=== PATIENT | male | born 1955 | race Two or more races ===

== ENCOUNTER 2016-05-30 14:58 | Inpatient (IN) | payer OTHER ==
[2016-05-30 18:08] VITALS: BMI 30.4
--- NOTE | 2016-05-30 19:49 | HP ---
COWS - Scale Resting Pulse: 0= [place] 80 or Below Sweatin= Chills/Flushing Restless Observation: 1= Difficult to Sit Still Pupil Size: 1= Pupils >than Normal Bone or Joint Aches: 2= Severe Diffuse Aches Runny Nose/ Eye Tearin= Runny Nose/Eyes GI Upset > 30mins: 1= Stomach Cramp Tremor Observation: 2= Slight Tremor Visible Yawning Observation: 0= None Anxiety or Irritability: 2=Irritable/Anxious Goose Flesh Skin: 3=Piloerection COWS Score: 15 Admission ROS S - [facility] Chief Complaint: WITHDRAWAL SX Allergies/Adverse Reactions: Allergies Allergy/AdvReac Type Severity Reaction Status Date / Time No Known Allergies Allergy Verified 05/30/16 18:25 History of Present Illness: 61 YEARS OLD MALE WITH LONG HISTORY OF OPIATE NICOTINE DEPENDENT, DENIES MEDICAL ISSUE HAS ANXIETY IS ADMITTED TO DETOX Exam Limitations: No Limitations - Ebola screening Have you traveled outside of the country in the last 21 days: No Have you had contact with anyone from an Ebola affected area: No Have you been sick,other than usual withdrawal symptoms: No Do you have a fever: No - Review of Systems Constitutional: Chills, Changes in sleep, Weight Stable EENT: reports: Other (NEED EYE GLASSES) Respiratory: reports: No Symptoms reported Cardiac: reports: No Symptoms Reported GI: reports: Poor Fluid Intake, Abdominal cramping : reports: No Symptoms Reported Musculoskeletal: reports: Back Pain, Joint Pain, Muscle Pain, Muscle Weakness ( RIGHT KNEE), Neck Pain Integumentary: reports: Change in Color (IV OPIATE INNER ELBOWS) Neuro: reports: Tremors Endocrine: reports: No Symptoms Reported Hematology: reports: No Symptoms Reported Psychiatric: reports: Judgement Intact, Anxious Other Systems: Reviewed and Negative Patient History - Patient Medical History Hx Anemia: No Hx Asthma: Yes Hx Chronic Obstructive Pulmonary Disease (COPD): Yes Hx Cancer: No Hx Cardiac Disorders: No Hx Congestive Heart Failure: No Hx Hypertension: No Hx Hypercholesterolemia: No Hx Pacemaker: No HX Cerebrovascular Accident: No Hx Seizures: No Hx Diabetes: No Hx Gastrointestinal Disorders: No Hx Liver Disease: No Hx Genitourinary Disorders: No Hx Sexually Transmitted Disorders: No Hx Renal Disease (ESRD): No Hx Thyroid Disease: No Hx Human Immunodeficiency Virus (HIV): Yes (diagnosed 1984) Hx Hepatitis C: Yes Hx Depression: Yes Hx Suicide Attempt: No (denies) Hx Bipolar Disorder: No Hx Schizophrenia: No - Patient Surgical History Past Surgical History: Yes Hx Neurologic Surgery: No Hx Cataract Extraction: No Hx Cardiac Surgery: No Hx Lung Surgery: No Hx Breast Surgery: No Hx Breast Biopsy: No Hx Abdominal Surgery: No Hx Appendectomy: No Hx Cholecystectomy: No Hx Genitourinary Surgery: No Hx Orthopedic Surgery: Yes (orthscopic sx 2 months ago 2015) Anesthesia Reaction: No - PPD History Previous Implant?: Yes Documented Results: Positive w/o proof Implanted On Prior R Admission?: No Results: 04/2015 PPD to be Administered?: No - Smoking Cessation Smoking history: Current every day smoker Have you smoked in the past 12 months: Yes Aproximately how many cigarettes per day: 4 Cigars Per Day: 0 Hx Chewing Tobacco Use: No Initiated information on smoking cessation: Yes 'Breaking Loose' booklet given: 05/30/16 - Substance & Tx. History Hx Alcohol Use: No Hx Substance Use: Yes Substance Use Type: Cocaine, Heroin, Opiates Hx Substance Use Treatment: Yes - Substances Abused Heroin Route: Injection Frequency: Daily Amount used: 20 BAGS Age of first use: 19 Date of Last Use: 05/30/16 Family Disease History - Family Disease History Family Disease History: Diabetes: Mother (), [place]: Mother, Other: Father ( ), Mother, Brother (), Sister (HIV ), Daughter ( ) Admission Physical Exam BHS - Vital Signs Vital Signs: Vital Signs - 24 hr 05/30/16 18:02 Temperature 97.1 F L Pulse Rate 90 Respiratory 20 Rate Blood Pressure 132/88 - Physical General Appearance: Yes: Appropriately Dressed, Mild Distress, Tremorous, Irritable, Sweating, Anxious HEENTM: Yes: Hearing grossly Normal, Normal ENT Inspection, Normocephalic, Normal Voice Respiratory: Yes: Chest Non-Tender, No Respiratory Distress, No Accessory Muscle Use, Wheezing, Expiration, Hyperresonant, Inspiration Neck: Yes: Supple, Trachea in good position Breast: Yes: Breasts Symetrical Cardiology: Yes: Regular Rhythm, Regular Rate, S1, S2 Abdominal: Yes: Non Tender, Soft Genitourinary: Yes: Within Normal Limits Back: Yes: Normal Inspection Musculoskeletal: Yes: Gait Steady (CANE), Back pain, Muscle Pain (RIGHT KNEE), Muscle weakness (RIGHT KNEE) Extremities: Yes: Normal Range of Motion, Non-Tender, Tremors Neurological: Yes: Fully Oriented, Alert, Normal Response, Depressed Affect Integumentary: Yes: Warm Lymphatic: Yes: Within Normal Limits - Diagnostic (1) Nicotine dependence Current Visit: Yes Status: Acute Qualifiers: Nicotine product type: cigarettes Substance use status: in withdrawal Qualified Code(s): F17.213 - Nicotine dependence, cigarettes, with withdrawal (2) Opioid dependence with withdrawal Current Visit: Yes Status: Acute (3) COPD with asthma Current Visit: Yes Status: Acute (4) HIV disease Current Visit: Yes Status: Chronic Comment: NO MEDICATIONS WITH PATIENT LAST DOSE 11/2016 (5) Hepatitis C antibody test positive Current Visit: Yes Status: Acute (6) BPH (benign prostatic hyperplasia) Current Visit: Yes Status: Acute Qualifiers: Prostatic enlargement morphology: non-nodular Lower urinary tract symptom presence: symptoms absent Qualified Code(s): N40.0 - Benign prostatic hyperplasia without lower urinary tract symptoms (7) Positive PPD, treated Current Visit: Yes Status: Resolved (8) Anxiety Current Visit: Yes Status: Suspected (9) History of hypertension Current Visit: Yes Status: Resolved Cleared for Admission [facility] - Detox or Rehab [facility] Level of Care: Medically Managed Detox Regimen/Protocol: Methadone S Breath Alcohol Content Breath Alcohol Content: 0 Urine Drug Screen - Results Drug Screen Negative: No Urine Drug Screen Results: TAYLOR-Cocaine, OPI-Opiates, MTD-Methadone, OXY- Oxycodone
[2016-05-30] MEDS ORDERED: LOPERAMIDE HCL 2 MG CAPSULE PO PRN (20:03)
[2016-05-30] MEDS ORDERED: P-EPHED 60MG/TRIPROLIDI 2.5MG TABLET PO PRN (20:03)
[2016-05-30] MEDS ORDERED: MAG HYDROX/AL HYDROX/SIMETH 30 ML UNIT-DOSE CUP PO PRN (20:03)
[2016-05-30] MEDS ORDERED: MAGNESIUM HYDROX 2400MG/30ML ORAL SUSPENSION 30 ML CUP PO PRN (20:03)
[2016-05-30] MEDS ORDERED: METHADONE HCL 10 MG TABLET (FOR DETOX USE ONLY) PO ONE ×2 (20:03→23:00)
[2016-05-30] MEDS ORDERED: guaiFENesin/D-METHORPHAN HB 10 ML UNIT-DOSE CUPS PO PRN (20:03)
[2016-05-30] MEDS ORDERED: MAGNESIUM CITRATE 300 ML BOTTLE PO PRN (20:03)
[2016-05-30] MEDS ORDERED: NICOTINE POLACRILEX 2 MG GUM BC PRN (20:03)
[2016-05-30] MEDS ORDERED: MENTHOL/PHENOL 1 EACH UD MM PRN (20:03)
[2016-05-30] MEDS ORDERED: ALBUTEROL SO4 2.5/IPRATROPIUM 0.5 INH SOL 3 ML VIAL.NEB. NEB PRN (20:05)
[2016-05-30] MEDS ORDERED: ALBUTEROL SO4 6.7 GM HFA INHALER IH PRN (20:05)
[2016-05-30] MEDS: diazePAM 5 MG TABLET PO PRN (22:10)
[2016-05-30] MEDS: THIAMINE HCL 100 MG TABLET (FP) PO SCH (22:11)
[2016-05-30] MEDS: diphenhydrAMINE HCL 50 MG CAPSULE PO PRN (22:12)
[2016-05-30] MEDS: NAPROXEN 500 MG TABLET (FP) PO PRN (22:12)
[2016-05-30] MEDS: RANITIDINE HCL 150 MG TABLET (FP) PO SCH (22:12)
[2016-05-30] MEDS: BUDESONIDE/FORMETEROL FUMARATE 80/4.5 mcg INHALER IH SCH (22:14)
[2016-05-30 23:17] LABS: URINE APPEARANCE CLEAR; URINE BILIRUBIN NEGATIVE (NEGATIVE); URINE BLOOD NEGATIVE (NEGATIVE); URINE COLOR YELLOW; URINE GLUCOSE (UA) NEGATIVE (NEGATIVE); URINE KETONE NEGATIVE (NEGATIVE); URINE LEUK ESTERASE NEGATIVE (NEGATIVE); URINE NITRITE NEGATIVE (NEGATIVE); URINE PROTEIN NEGATIVE (NEGATIVE); URINE UROBILINOGEN NEGATIVE E.U./dl (0.2-1.0)
[2016-05-31] MEDS: diazePAM 5 MG TABLET PO PRN ×4 (01:10→22:11)
[2016-05-31] MEDS: NAPROXEN 500 MG TABLET (FP) PO PRN ×3 (06:11→22:10)
[2016-05-31] MEDS ORDERED: METHADONE HCL 10 MG TABLET (FOR DETOX USE ONLY) PO ONE (10:00)
[2016-05-31] MEDS: RANITIDINE HCL 150 MG TABLET (FP) PO SCH ×2 (10:12→22:11)
[2016-05-31] MEDS: TAMSULOSIN HCL 0.4 MG CAP.ER.24H (FP) PO SCH (10:12)
[2016-05-31] MEDS: ASPIRIN 81 MG CHEWABLE TABLETS PO SCH (10:12)
[2016-05-31] MEDS: PRENATAL VITAMINS W/ FOLIC ACID TABLET (FP) PO SCH (10:12)
[2016-05-31] MEDS: NICOTINE 14 MG/24 HOURS TOPICAL PATCH TD SCH (10:13)
[2016-05-31 10:15] LABS: MCH 29.8 pg (25.7-33.7); MEAN CELL VOLUME 93.1 fl (80-96); PLATELET COUNT 258 K/MM3 (134-434); RDW 18.1 % (11.9-15.9); WHITE BLOOD COUNT 7.7 K/mm3 (4.0-10.0)
[2016-05-31 10:32] LABS: ALBUMIN 3.7 g/dl (3.4-5.0); ALK PHOS 96 U/L (45-117); ANION GAP 7 (8-16); BILIRUBIN,TOTAL 0.2 mg/dL (0.2-1.0); CALCIUM 8.8 mg/dL (8.5-10.1); CO2 26 mmol/L (21-32); CREATININE 0.9 mg/dL (0.7-1.3); GLUCOSE,RANDOM 75 mg/dL (74-106); SGOT/AST 15 U/L (15-37); SGPT/ALT 21 U/L (12-78); TOT PROT 7.4 g/dl (6.4-8.2)
[2016-05-31] MEDS: METHYL SALICYLATE/MENTHOL OINT 30 GM TUBE TP SCH ×2 (10:36→22:10)
--- NOTE | 2016-05-31 11:06 | PN ---
S COWS - Scale Resting Pulse: 0= [place] 80 or Below Sweatin=Flushed/Facial Moisture Restless Observation: 1= Difficult to Sit Still Pupil Size: 1= Pupils >than Normal Bone or Joint Aches: 2= Severe Diffuse Aches Runny Nose/ Eye Tearin= Nasal Congestion GI Upset > 30mins: 1= Stomach Cramp Tremor Observation of Outstretched Hands: 1= Tremor [place], Not Seen Yawning Observation: 0= None Anxiety or Irritability: 2=Irritable/Anxious Goose Flesh Skin: 0=Smooth Skin COWS Score: 11 S Progress Note (SOAP) Subjective: interrupted sleep, sweats, shakes , rt leg sciatica, gas Objective: 05/31/16 11:04 Vital Signs Temperature 97.1 F L 05/31/16 06:41 Pulse Rate 65 05/31/16 06:41 Respiratory Rate 16 05/31/16 06:41 Blood Pressure 129/76 05/31/16 06:41 O2 Sat by Pulse Oximetry (%) Laboratory Tests 05/30/16 05/31/16 05/31/16 22:00 07:00 07:00 WBC 7.7 RBC 4.60 Hgb 13.7 Hct 42.8 MCV 93.1 MCHC 32.0 RDW 18.1 H D Plt Count 258 MPV 9.0 Sodium 140 Potassium 4.4 Chloride 107 Carbon Dioxide 26 Anion Gap 7 L BUN 22 H D Creatinine 0.9 Creat Clearance w eGFR > 60 Random Glucose 75 D Calcium 8.8 Total Bilirubin 0.2 D AST 15 ALT 21 D Alkaline Phosphatase 96 D Total Protein 7.4 Albumin 3.7 D Urine Color Yellow Urine Appearance Clear Urine pH 5.0 D Ur Specific [place] 1.017 Urine Protein Negative Urine Glucose (UA) Negative Urine Ketones Negative Urine Blood Negative Urine Nitrite Negative Urine Bilirubin Negative Urine Urobilinogen Negative Ur Leukocyte Esterase Negative pt aox3 in nad lying in bed Assessment: 05/31/16 11:06 withdrawal sx's rt sciatica constpation gas Plan: cont detox increase fluids flexeril prn simethecone qid ctroma naprosyn
[2016-05-31] MEDS ORDERED: SIMETHICONE 80 MG TAB.CHEW (FP) PO PRN (11:12)
[2016-05-31] MEDS: BUDESONIDE/FORMETEROL FUMARATE 80/4.5 mcg INHALER IH SCH ×2 (11:45→22:11)
[2016-05-31] MEDS: CYCLOBENZAPRINE HCL 10 MG TABLET (FP) PO SCH ×2 (14:08→22:10)
[2016-05-31] MEDS: ACETAMINOPHEN 325 MG TABLET (FP) PO PRN (14:08)
--- NOTE | 2016-05-31 16:55 | EKG ---
Test Reason : Blood Pressure : / mmHG Vent. Rate : 071 BPM Atrial Rate : 071 BPM P-R Int : 172 ms QRS Dur : 086 ms QT Int : 394 ms P-R-T Axes : 019 -41 030 degrees QTc Int : 428 ms NORMAL SINUS RHYTHM LEFT AXIS DEVIATION ABNORMAL ECG NO PREVIOUS ECGS AVAILABLE Confirmed by ANDREA VARGHESE MD ([id number]) on 05/31/2016 4:54:59 PM Referred By: Confirmed By:ANDREA VARGHESE MD
--- NOTE | 2016-05-31 17:02 | CONSULT ---
[facility] Psychiatric Consult - Data Date of interview: 05/31/16 Admission source: [facility] Identifying data: Another admission to [facility] for this 61 y/o male seeking detox treatment on for heroin and cocaine dependence.Patient is ,a father of fourteen (in this interview),domiciled, a retired [employer] (supposedly served in [place] from 1968 to 1972) and currently supported on his pension benefits. Substance Abuse History: - Smoking Cessation. Smoking history: Current every day smoker. Have you smoked in the past 12 months: Yes. Aproximately how many cigarettes per day: 4. Cigars Per Day: 0. Hx Chewing Tobacco Use: No. Initiated information on smoking cessation: Yes. 'Breaking Loose' booklet given : 05/30/16. - Substance & Tx. History. Hx Alcohol Use: No. Hx Substance Use: Yes. Substance Use Type: Cocaine, Heroin, Opiates. Hx Substance Use Treatment : Yes. - Substances Abused. Heroin. Route: Injection. Frequency: Daily. Amount used: 20 BAGS. Age of first use: 19. Date of Last Use: 05/30/16. Confirmed by the patient. Medical History: Bronchial asthma,pneumonias (PCP),diabetes mellitus,HIV infection since 1984 (on ART agents),GERD,hepatitis C and a history of orthoscopic surgery in the right knee (2016). Psychiatric History: Variable according to encounters.Patient is not a reliable historian (different historical versions to clinicians).Mr De Jesus reports a past admission to [place].Diagnosed with " Personality Disorder " and PTSD.Prescribed trazodone and ambien.However,the patient states that he has no [facility] care provider.No contact with psychiatrists.He reports that he was released from long term seven months ago after serving a 38 year sentence (?) for homicide.Patient denies history of suicide attempts. Physical/Sexual Abuse/Trauma History: Patient denies history of sexual abuse. Additional Comment: Urine Drug Screen Results: TAYLOR-Cocaine, OPI-Opiates, MTD- Methadone, OXY-Oxycodone.Noted. Mental Status Exam - Mental Status Exam Alert and Oriented to: Time, Place, Person Cognitive Function: Good Patient Appearance: Well Groomed (covered with tattoos) Mood: Hopeful, Euthymic Affect: Appropriate, Normal Range Patient Behavior: Fatigued, Appropriate, Cooperative Speech Pattern: Clear, Appropriate Voice Loudness: Normal Thought Process: Goal Oriented Thought Disorder: Not Present Hallucinations: Denies Suicidal Ideation: Denies Homicidal Ideation: Denies Insight/Judgement: Poor Sleep: Poorly, Difficulty falling asleep Appetite: Good Muscle strength/Tone: Normal Gait/Station: Normal Psychiatric Findings - Problem List ([place] 1, 2,3) (1) Opioid dependence with withdrawal Current Visit: Yes Status: Acute (2) Cocaine dependence Current Visit: Yes Status: Acute Qualifiers: Substance use status: uncomplicated Qualified Code(s): F14.20 - Cocaine dependence, uncomplicated (3) Nicotine dependence Current Visit: Yes Status: Acute Qualifiers: Nicotine product type: cigarettes Substance use status: in withdrawal Qualified Code(s): F17.213 - Nicotine dependence, cigarettes, with withdrawal (4) Drug-induced mood disorder Current Visit: No Status: Acute (5) BPH (benign prostatic hyperplasia) Current Visit: Yes Status: Chronic Qualifiers: Prostatic enlargement morphology: non-nodular Lower urinary tract symptom presence: symptoms absent Qualified Code(s): N40.0 - Benign prostatic hyperplasia without lower urinary tract symptoms (6) COPD with asthma Current Visit: Yes Status: Chronic (7) Hepatitis C antibody test positive Current Visit: Yes Status: Chronic (8) HIV disease Current Visit: Yes Status: Chronic Comment: NO MEDICATIONS WITH PATIENT LAST DOSE 11/2016 (9) History of hypertension Current Visit: Yes Status: Resolved (10) Diabetes Current Visit: Yes Status: Chronic Qualifiers: Diabetes mellitus type: type 2 Diabetes mellitus complication status: without complication Diabetes mellitus nursing home insulin use: without nursing home use Qualified Code(s): E11.9 - Type 2 diabetes mellitus without complications (11) GERD (gastroesophageal reflux disease) Current Visit: Yes Status: Chronic Qualifiers: Esophagitis presence: without esophagitis Qualified Code(s): K21.9 - Gastro-esophageal reflux disease without esophagitis (12) Insomnia Current Visit: Yes Status: Chronic - Initial Treatment Plan Initial Treatment Plan: Psychoeducation.Detoxication.Trazodone 100 mg po hs .Made aware of the risk of priapism and instructed to stop that drug/seek immediate attemntion fif painful/prolonged erection.Patient agrees with this careplan.Observation.
[2016-05-31] MEDS: traZODone HCL 100 MG TABLET (FP) PO SCH (22:10)
[2016-05-31] MEDS: THIAMINE HCL 100 MG TABLET (FP) PO SCH (22:11)
[2016-06-01] MEDS: diazePAM 5 MG TABLET PO PRN ×2 (06:04→22:59)
[2016-06-01] MEDS: CYCLOBENZAPRINE HCL 10 MG TABLET (FP) PO SCH ×3 (06:04→22:53)
--- NOTE | 2016-06-01 09:33 | PN ---
BHS COWS - Scale Resting Pulse: 0= [place] 80 or Below Sweatin=Flushed/Facial Moisture Restless Observation: 1= Difficult to Sit Still Pupil Size: 0= Normal to Room Light Bone or Joint Aches: 2= Severe Diffuse Aches Runny Nose/ Eye Tearin= Nasal Congestion GI Upset > 30mins: 0= None Tremor Observation of Outstretched Hands: 1= Tremor [place], Not Seen Yawning Observation: 2= >3x During Session Anxiety or Irritability: 1=Feels Anxious/Irritable Goose Flesh Skin: 0=Smooth Skin COWS Score: 10 BHS Progress Note (SOAP) Subjective: restless legs sweats sleepy/tired body aches interrupted sleep Objective: 06/01/16 09:25 Vital Signs Temperature 98.1 F 06/01/16 06:00 Pulse Rate 70 06/01/16 06:00 Respiratory Rate 18 06/01/16 06:00 Blood Pressure 100/59 06/01/16 06:00 O2 Sat by Pulse Oximetry (%) Laboratory Tests 05/30/16 05/31/16 05/31/16 22:00 07:00 07:00 WBC 7.7 RBC 4.60 Hgb 13.7 Hct 42.8 MCV 93.1 MCHC 32.0 RDW 18.1 H D Plt Count 258 MPV 9.0 Sodium 140 Potassium 4.4 Chloride 107 Carbon Dioxide 26 Anion Gap 7 L BUN 22 H D Creatinine 0.9 Creat Clearance w eGFR > 60 Random Glucose 75 D Calcium 8.8 Total Bilirubin 0.2 D AST 15 ALT 21 D Alkaline Phosphatase 96 D Total Protein 7.4 Albumin 3.7 D Urine Color Yellow Urine Appearance Clear Urine pH 5.0 D Ur Specific [place] 1.017 Urine Protein Negative Urine Glucose (UA) Negative Urine Ketones Negative Urine Blood Negative Urine Nitrite Negative Urine Bilirubin Negative Urine Urobilinogen Negative Ur Leukocyte Esterase Negative RPR Titer Hepatitis C Antibody 05/31/16 05/31/16 07:00 07:00 WBC RBC Hgb Hct MCV MCHC RDW Plt Count MPV Sodium Potassium Chloride Carbon Dioxide Anion Gap BUN Creatinine Creat Clearance w eGFR Random Glucose Calcium Total Bilirubin AST ALT Alkaline Phosphatase Total Protein Albumin Urine Color Urine Appearance Urine pH Ur Specific [place] Urine Protein Urine Glucose (UA) Urine Ketones Urine Blood Urine Nitrite Urine Bilirubin Urine Urobilinogen Ur Leukocyte Esterase RPR Titer Nonreactive Hepatitis C Antibody >11.0 H awake/alert lying in bed no acute distress Assessment: 06/01/16 09:26 withdrawal sx Plan: continue detox increase fluids stomach is feeling better
[2016-06-01] MEDS ORDERED: METHADONE HCL 5 MG TABLET (FOR DETOX USE ONLY) PO ONE (10:00)
[2016-06-01] MEDS: PRENATAL VITAMINS W/ FOLIC ACID TABLET (FP) PO SCH (10:55)
[2016-06-01] MEDS: BUDESONIDE/FORMETEROL FUMARATE 80/4.5 mcg INHALER IH SCH ×2 (10:55→22:54)
[2016-06-01] MEDS: RANITIDINE HCL 150 MG TABLET (FP) PO SCH ×2 (10:56→22:52)
[2016-06-01] MEDS: ASPIRIN 81 MG CHEWABLE TABLETS PO SCH (10:56)
[2016-06-01] MEDS: TAMSULOSIN HCL 0.4 MG CAP.ER.24H (FP) PO SCH (10:56)
[2016-06-01] MEDS: NAPROXEN 500 MG TABLET (FP) PO PRN ×2 (10:58→22:59)
[2016-06-01] MEDS: METHYL SALICYLATE/MENTHOL OINT 30 GM TUBE TP SCH ×2 (11:29→22:54)
[2016-06-01] MEDS: NICOTINE 14 MG/24 HOURS TOPICAL PATCH TD SCH (11:29)
[2016-06-01] MEDS: traZODone HCL 100 MG TABLET (FP) PO SCH (22:53)
[2016-06-01] MEDS: THIAMINE HCL 100 MG TABLET (FP) PO SCH (22:53)
[2016-06-02] MEDS: CYCLOBENZAPRINE HCL 10 MG TABLET (FP) PO SCH ×3 (06:13→22:08)
[2016-06-02] MEDS: NAPROXEN 500 MG TABLET (FP) PO PRN (06:16)
[2016-06-02] MEDS ORDERED: METHADONE HCL 5 MG TABLET (FOR DETOX USE ONLY) PO ONE (10:00)
[2016-06-02] MEDS: ASPIRIN 81 MG CHEWABLE TABLETS PO SCH (10:19)
[2016-06-02] MEDS: RANITIDINE HCL 150 MG TABLET (FP) PO SCH ×2 (10:19→22:08)
[2016-06-02] MEDS: TAMSULOSIN HCL 0.4 MG CAP.ER.24H (FP) PO SCH (10:19)
[2016-06-02] MEDS: METHYL SALICYLATE/MENTHOL OINT 30 GM TUBE TP SCH ×2 (10:20→22:08)
[2016-06-02] MEDS: BUDESONIDE/FORMETEROL FUMARATE 80/4.5 mcg INHALER IH SCH ×2 (10:20→22:08)
[2016-06-02] MEDS: NICOTINE 14 MG/24 HOURS TOPICAL PATCH TD SCH ×2 (10:20→15:07)
[2016-06-02] MEDS: PRENATAL VITAMINS W/ FOLIC ACID TABLET (FP) PO SCH (10:20)
--- NOTE | 2016-06-02 10:57 | PN ---
BHS Progress Note (SOAP) Subjective: interrupted sleep, sweats , shakes , sciatica pain wants to change to motrin Objective: 06/02/16 10:55 Vital Signs Temperature 96.8 F L 06/02/16 09:37 Pulse Rate 82 06/02/16 09:37 Respiratory Rate 20 06/02/16 09:37 Blood Pressure 109/69 06/02/16 09:37 O2 Sat by Pulse Oximetry (%) Laboratory Tests 05/30/16 05/31/16 05/31/16 22:00 07:00 07:00 WBC 7.7 RBC 4.60 Hgb 13.7 Hct 42.8 MCV 93.1 MCHC 32.0 RDW 18.1 H D Plt Count 258 MPV 9.0 Sodium 140 Potassium 4.4 Chloride 107 Carbon Dioxide 26 Anion Gap 7 L BUN 22 H D Creatinine 0.9 Creat Clearance w eGFR > 60 Random Glucose 75 D Calcium 8.8 Total Bilirubin 0.2 D AST 15 ALT 21 D Alkaline Phosphatase 96 D Total Protein 7.4 Albumin 3.7 D Urine Color Yellow Urine Appearance Clear Urine pH 5.0 D Ur Specific [place] 1.017 Urine Protein Negative Urine Glucose (UA) Negative Urine Ketones Negative Urine Blood Negative Urine Nitrite Negative Urine Bilirubin Negative Urine Urobilinogen Negative Ur Leukocyte Esterase Negative RPR Titer Hepatitis C Antibody 05/31/16 05/31/16 07:00 07:00 WBC RBC Hgb Hct MCV MCHC RDW Plt Count MPV Sodium Potassium Chloride Carbon Dioxide Anion Gap BUN Creatinine Creat Clearance w eGFR Random Glucose Calcium Total Bilirubin AST ALT Alkaline Phosphatase Total Protein Albumin Urine Color Urine Appearance Urine pH Ur Specific [place] Urine Protein Urine Glucose (UA) Urine Ketones Urine Blood Urine Nitrite Urine Bilirubin Urine Urobilinogen Ur Leukocyte Esterase RPR Titer Nonreactive Hepatitis C Antibody >11.0 H pt lying in bed aox 3 Assessment: 06/02/16 10:56 withdrawal sx's sciatica Plan: cont. detox increase fluids d/c maprosym motrin 800mg tid/prn
[2016-06-02] MEDS: IBUPROFEN 400 MG TABLET (FP) PO PRN (17:50)
[2016-06-02] MEDS: diazePAM 5 MG TABLET PO PRN (17:50)
[2016-06-02] MEDS: traZODone HCL 100 MG TABLET (FP) PO SCH (22:08)
[2016-06-02] MEDS: THIAMINE HCL 100 MG TABLET (FP) PO SCH (22:08)
[2016-06-02] MEDS: diphenhydrAMINE HCL 50 MG CAPSULE PO PRN (22:09)
[2016-06-03] MEDS: CYCLOBENZAPRINE HCL 10 MG TABLET (FP) PO SCH ×3 (05:52→22:39)
[2016-06-03] MEDS: TAMSULOSIN HCL 0.4 MG CAP.ER.24H (FP) PO SCH (07:32)
[2016-06-03] MEDS ORDERED: METHADONE HCL 10 MG TABLET (FOR DETOX USE ONLY) PO ONE (10:00)
[2016-06-03] MEDS: ASPIRIN 81 MG CHEWABLE TABLETS PO SCH (10:38)
[2016-06-03] MEDS: PRENATAL VITAMINS W/ FOLIC ACID TABLET (FP) PO SCH (10:38)
[2016-06-03] MEDS: RANITIDINE HCL 150 MG TABLET (FP) PO SCH ×2 (10:38→22:39)
[2016-06-03] MEDS: NICOTINE 14 MG/24 HOURS TOPICAL PATCH TD SCH (10:39)
[2016-06-03] MEDS: IBUPROFEN 400 MG TABLET (FP) PO PRN ×2 (10:41→18:50)
[2016-06-03] MEDS: BUDESONIDE/FORMETEROL FUMARATE 80/4.5 mcg INHALER IH SCH ×2 (10:42→22:40)
[2016-06-03] MEDS: METHYL SALICYLATE/MENTHOL OINT 30 GM TUBE TP SCH ×2 (10:43→22:40)
--- NOTE | 2016-06-03 13:20 | PN ---
S Progress Note (SOAP) Subjective: ALERT,IRRITABLE,ANXIOUS,INTERRUPTED SLEEP Objective: 06/03/16 13:20 Vital Signs Temperature 98.2 F 06/03/16 06:53 Pulse Rate 74 06/03/16 06:53 Respiratory Rate 18 06/03/16 06:53 Blood Pressure 106/62 06/03/16 06:53 O2 Sat by Pulse Oximetry (%) Assessment: 06/03/16 13:20 WITHDRAWAL SYMPTOM Plan: CONTINUE DETOX
[2016-06-03] MEDS: ACETAMINOPHEN 325 MG TABLET (FP) PO PRN (16:12)
[2016-06-03] MEDS: traZODone HCL 100 MG TABLET (FP) PO SCH (22:39)
[2016-06-03] MEDS: THIAMINE HCL 100 MG TABLET (FP) PO SCH (22:39)
[2016-06-04] MEDS: CYCLOBENZAPRINE HCL 10 MG TABLET (FP) PO SCH (05:40)
[2016-06-04] MEDS ORDERED: METHADONE HCL 5 MG TABLET (FOR DETOX USE ONLY) PO ONE (06:00)
--- NOTE | 2016-06-04 09:23 | PN ---
S Progress Note (SOAP) Subjective: ALERT,NO COMPLAINT Objective: 06/04/16 09:21 Vital Signs Temperature 98.1 F 06/04/16 06:00 Pulse Rate 74 06/04/16 06:00 Respiratory Rate 18 06/04/16 06:00 Blood Pressure 112/62 06/04/16 06:00 O2 Sat by Pulse Oximetry (%) Assessment: 06/04/16 09:22 DETOX COMPLETED,NO WITHDRAWAL SYMPTOM Plan: DISCHARGE TODAY,FOLLOW UP WITH AFTER CARE PROGRAM REVELATION ARRANGEMENT
--- NOTE | 2016-06-04 09:28 | DS ---
[facility] Detox Discharge Summary Admission Date: 05/30/16 Discharge Date: 06/04/16 - History Present History: Cocaine Dependence, Opioid Dependence Additional Comments: FOLLOW UP WITH AFTER CARE PROGRAM REVELATION ARRANGEMENT AND PMD FOR MEDICAL PROBLEM Pertinent Past History: NICOTINE DEPENDENCE COPD HIV HEPATITIS C BPH ANXIETY HPERTENSION POSITIVE PPD - Physical Exam Results Vital Signs: Vital Signs Temperature 98.1 F 06/04/16 06:00 Pulse Rate 74 06/04/16 06:00 Respiratory Rate 18 06/04/16 06:00 Blood Pressure 112/62 06/04/16 06:00 O2 Sat by Pulse Oximetry (%) Pertinent Admission Physical Exam Findings: WITHDRAWAL SYMPTOM - Treatment Hospital Course: Detox Protocol Followed, Detoxed Safely, Responded well, Discharged Condition Good Patient has Accepted a Rehab Referral to: WITHDRAWAL SYMPTOM - Medication Discharge Medications: Ambulatory Orders Aspirin [ASA -] 81 mg PO DAILY 04/28/15 Beclomethasone Dipropionate [Qvar] 2 inh IH BID 04/28/15 Darunavir Ethanolate [Prezista -] 800 mg PO DAILY 04/28/15 Emtricitabine/Tenofovir [Truvada] 1 tab PO DAILY 04/28/15 Gabapentin [Neurontin -] 300 mg PO BID 04/28/15 Oxycodone HCl 30 mg PO TID PRN 04/28/15 Ramipril [Altace] 2.5 mg PO DAILY 04/28/15 Ranitidine [Zantac -] 150 mg PO DAILY 04/28/15 Ritonavir [Norvir -] 100 mg PO DAILY 04/28/15 Tiotropium [place] [Spiriva -] 1 inh PO DAILY 04/28/15 Zolpidem Tartrate [Ambien] 10 mg PO HS #30 tablet 04/29/15 Trazodone HCl [Desyrel -] 100 mg PO HS 11/27/15 - Diagnosis (1) Cocaine dependence Current Visit: Yes Status: Acute Qualifiers: Substance use status: uncomplicated Qualified Code(s): F14.20 - Cocaine dependence, uncomplicated (2) Nicotine dependence Current Visit: Yes Status: Acute Qualifiers: Nicotine product type: cigarettes Substance use status: in withdrawal Qualified Code(s): F17.213 - Nicotine dependence, cigarettes, with withdrawal (3) Opioid dependence with withdrawal Current Visit: Yes Status: Acute (4) BPH (benign prostatic hyperplasia) Current Visit: Yes Status: Chronic Qualifiers: Prostatic enlargement morphology: non-nodular Lower urinary tract symptom presence: symptoms absent Qualified Code(s): N40.0 - Benign prostatic hyperplasia without lower urinary tract symptoms (5) COPD with asthma Current Visit: Yes Status: Chronic (6) GERD (gastroesophageal reflux disease) Current Visit: Yes Status: Chronic Qualifiers: Esophagitis presence: without esophagitis Qualified Code(s): K21.9 - Gastro-esophageal reflux disease without esophagitis (7) HIV disease Current Visit: Yes Status: Chronic (8) Hepatitis C antibody test positive Current Visit: Yes Status: Chronic (9) Anxiety Current Visit: Yes Status: Suspected (10) History of hypertension Current Visit: Yes Status: Resolved (11) Positive PPD, treated Current Visit: Yes Status: Resolved - AMA Did Patient Leave Against Medical Advice: No
[2016-06-04 10:02] VITALS: BP 105/65; PULSE 88; TEMP 97.9
[2016-06-04] MEDS: ASPIRIN 81 MG CHEWABLE TABLETS PO SCH (10:36)
[2016-06-04] MEDS: TAMSULOSIN HCL 0.4 MG CAP.ER.24H (FP) PO SCH (10:37)
[2016-06-04] MEDS: PRENATAL VITAMINS W/ FOLIC ACID TABLET (FP) PO SCH (10:37)
[2016-06-04] MEDS: RANITIDINE HCL 150 MG TABLET (FP) PO SCH (10:38)
[2016-06-04] MEDS: IBUPROFEN 400 MG TABLET (FP) PO PRN (10:38)
[2016-06-04] MEDS: BUDESONIDE/FORMETEROL FUMARATE 80/4.5 mcg INHALER IH SCH (10:42)
[2016-06-04] MEDS: METHYL SALICYLATE/MENTHOL OINT 30 GM TUBE TP SCH (10:42)
[2016-06-04] MEDS: NICOTINE 14 MG/24 HOURS TOPICAL PATCH TD SCH (10:52)
== END 2016-06-04 12:07 | disposition other institution (70) | DRG 773 ==
LOC: YASAS 14:58 → Y6N 19:21
PROVIDERS: ADMIT Internal Medicine Addiction Medicine; ATTEND Internal Medicine Addiction Medicine
PROC: HZ2ZZZZ Detoxification Services for Substance Abuse Treatment (ICD-10-PCS; principal; 2016-06-04)
DX: F11.23 Opioid dependence with withdrawal (principal); F14.20 Cocaine dependence, uncomplicated; F17.213 Nicotine dependence, cigarettes, with withdrawal; F41.9 Anxiety disorder, unspecified; J44.9 Chronic obstructive pulmonary disease, unspecified; B18.2 Chronic viral hepatitis C; I10 Essential (primary) hypertension; K21.9 Gastro-esophageal reflux disease without esophagitis; B20 Human immunodeficiency virus [HIV] disease; R76.11 Nonspecific reaction to tuberculin skin test without active tuberculosis
CPT/HCPCS: 36415; 71020-TC; 80053; 81003; 85027; 86593; 87522; 93005; 93010

== ENCOUNTER 2016-06-04 12:32 | Inpatient (IN) | payer OTHER ==
[2016-06-04] MEDS ORDERED: NICOTINE POLACRILEX 2 MG GUM BUC PRN (13:59)
[2016-06-04] MEDS ORDERED: ACETAMINOPHEN 325 MG TABLET (FP) PO PRN (13:59)
[2016-06-04] MEDS ORDERED: MENTHOL/PHENOL 1 EACH UD MM PRN (13:59)
[2016-06-04] MEDS ORDERED: MAGNESIUM HYDROX 2400MG/30ML ORAL SUSPENSION 30 ML CUP PO PRN (13:59)
[2016-06-04] MEDS ORDERED: IBUPROFEN 400 MG TABLET (FP) PO PRN (13:59)
[2016-06-04] MEDS ORDERED: LOPERAMIDE HCL 2 MG CAPSULE PO PRN (13:59)
[2016-06-04] MEDS ORDERED: P-EPHED 60MG/TRIPROLIDI 2.5MG TABLET PO PRN (13:59)
[2016-06-04] MEDS ORDERED: guaiFENesin/D-METHORPHAN HB 10 ML UNIT-DOSE CUPS PO PRN (13:59)
[2016-06-04] MEDS ORDERED: MAG HYDROX/AL HYDROX/SIMETH 30 ML UNIT-DOSE CUP PO PRN (13:59)
[2016-06-04] MEDS ORDERED: MAGNESIUM CITRATE 300 ML BOTTLE PO PRN (13:59)
[2016-06-04] MEDS ORDERED: ALBUTEROL SO4 6.7 GM HFA INHALER IH PRN (14:00)
--- NOTE | 2016-06-04 14:06 | HP ---
[facility] Rehab Assess/Revision - Admission History Admitted to Rehab from: [facility] [place] Date of Admission to Rehab: 06/04/16 - Vital signs Vital Signs: Vital Signs Period Temp Pulse Resp BP Sys/Shields Pulse Ox Last 24 Hr 97.7 F 86 18 119/79 - Findings Detox History & Physical reviewed: Yes Concur with findings: Yes
[2016-06-04] MEDS: traZODone HCL 100 MG TABLET (FP) PO SCH (21:11)
[2016-06-04] MEDS: THIAMINE HCL 100 MG TABLET (FP) PO SCH (21:12)
[2016-06-04] MEDS: BUDESONIDE/FORMETEROL FUMARATE 80/4.5 mcg INHALER IH SCH (21:12)
[2016-06-04] MEDS: RANITIDINE HCL 150 MG TABLET (FP) PO SCH (21:12)
[2016-06-04] MEDS ORDERED: diphenhydrAMINE HCL 50 MG CAPSULE PO PRN (22:00)
[2016-06-04] MEDS: ACLIDINIUM BROMIDE 400 MCG/INH AERO.POWD IH SCH (23:31)
[2016-06-05] MEDS: IBUPROFEN 400 MG TABLET (FP) PO PRN ×2 (06:51→16:58)
[2016-06-05] MEDS: CYCLOBENZAPRINE HCL 10 MG TABLET (FP) PO PRN (06:51)
[2016-06-05] MEDS ORDERED: RANITIDINE HCL 150 MG TABLET (FP) PO SCH (10:00)
[2016-06-05] MEDS: NICOTINE 14 MG/24 HOURS TOPICAL PATCH TD SCH (12:10)
[2016-06-05] MEDS: BUDESONIDE/FORMETEROL FUMARATE 80/4.5 mcg INHALER IH SCH ×2 (12:10→21:41)
[2016-06-05] MEDS: ACLIDINIUM BROMIDE 400 MCG/INH AERO.POWD IH SCH ×2 (12:10→21:41)
[2016-06-05] MEDS: PRENATAL VITAMINS W/ FOLIC ACID TABLET (FP) PO SCH (12:10)
[2016-06-05] MEDS: RANITIDINE HCL 150 MG TABLET (FP) PO SCH ×2 (12:10→22:14)
[2016-06-05] MEDS: TAMSULOSIN HCL 0.4 MG CAP.ER.24H (FP) PO SCH (12:10)
[2016-06-05] MEDS: ASPIRIN 81 MG CHEWABLE TABLETS PO SCH (12:10)
[2016-06-05] MEDS: THIAMINE HCL 100 MG TABLET (FP) PO SCH (21:40)
[2016-06-05] MEDS: traZODone HCL 100 MG TABLET (FP) PO SCH (21:40)
[2016-06-06] MEDS: IBUPROFEN 400 MG TABLET (FP) PO PRN ×2 (06:16→10:11)
[2016-06-06] MEDS: CYCLOBENZAPRINE HCL 10 MG TABLET (FP) PO PRN (06:16)
[2016-06-06 07:23] VITALS: BP 134/77; PULSE 75; TEMP 98
[2016-06-06] MEDS: TAMSULOSIN HCL 0.4 MG CAP.ER.24H (FP) PO SCH (09:00)
[2016-06-06] MEDS: ASPIRIN 81 MG CHEWABLE TABLETS PO SCH (10:08)
[2016-06-06] MEDS: NICOTINE 14 MG/24 HOURS TOPICAL PATCH TD SCH (10:09)
[2016-06-06] MEDS: RANITIDINE HCL 150 MG TABLET (FP) PO SCH (10:09)
[2016-06-06] MEDS: PRENATAL VITAMINS W/ FOLIC ACID TABLET (FP) PO SCH (10:10)
[2016-06-06] MEDS: ACLIDINIUM BROMIDE 400 MCG/INH AERO.POWD IH SCH (10:10)
[2016-06-06] MEDS: BUDESONIDE/FORMETEROL FUMARATE 80/4.5 mcg INHALER IH SCH (10:10)
--- NOTE | 2016-06-06 11:29 | PN ---
S Progress Note Note: patient signed out ama prior to be seen by a psychiatrist for admission, please see medical staff notes.
== END 2016-06-06 10:50 | disposition left against medical advice (07) | DRG 770 ==
LOC: YASAS 12:32 → Y5N 12:33
PROVIDERS: ADMIT Psychiatry & Neurology Psychiatry; ATTEND Psychiatry & Neurology Psychiatry
PROC: HZ42ZZZ Group Counseling for Substance Abuse Treatment, Cognitive-Behavioral (ICD-10-PCS; principal; 2016-06-04)
DX: F11.20 Opioid dependence, uncomplicated (principal); F17.210 Nicotine dependence, cigarettes, uncomplicated; F41.9 Anxiety disorder, unspecified; J45.909 Unspecified asthma, uncomplicated; J44.9 Chronic obstructive pulmonary disease, unspecified; Z21 Asymptomatic human immunodeficiency virus [HIV] infection status; N40.0 Benign prostatic hyperplasia without lower urinary tract symptoms; B18.2 Chronic viral hepatitis C; R76.11 Nonspecific reaction to tuberculin skin test without active tuberculosis; Z86.79 Personal history of other diseases of the circulatory system